=== PATIENT | female | born 1985 | race Caucasian/White ===

== ENCOUNTER → 2019-10-09 11:32 | Outpatient (BNVA) | payer OTHER, SELFPAY | PROVIDERS: Family Provider Family Medicine; PCP Family Medicine; Visit Provider Family Medicine | DX: N89.8 Other specified noninflammatory disorders of vagina (principal) | CPT/HCPCS: 84450; 87070 ==

== ENCOUNTER 2021-01-04 08:35 | Emergency (ER) | payer OTHER, SELFPAY ==
[2021-01-04] VITALS (10 sets, daily range): BP systolic 101–104; BP diastolic 60–70; PULSE 60; RESP 17–18; TEMP 37.1; O2SAT 96–100; BMI 30.2
--- NOTE | 2021-01-04 08:54 | ED_ITS ---
HPI - Back Pain/Injury General: Chief Complaint: Back Pain/Injury Stated Complaint: BACK PAIN: INJURED 1 WK AGO Time Seen by Provider: 01/04/21 08:38 History of Present Illness: HPI Narrative: 35-year-old female presents emergency room was here back pain with pain radiating into her L leg. Symptoms began about a week ago she relates them to sleeping on a mattress after they have flipped it. She did not feel like the actual act of flipping the mattress and cause a problem is just a change in the mattress after flipping it when she slept on it. It became progressively worse. No trauma no falls no recent MVAs. No previous back injuries or previous imaging of the back. Stop previously had any surgeries on her back. She denies any incontinence of bowel or any urinary retention. No fever sweats or chills. She denies dysuria urgency or frequency no history kidney stones. She is not had any hematochezia or melena. MD elicited complaint: back pain Onset (ago): week(s) (1) Timing: constant Severity: severe Quality: sharp Location: lumbar spine Radiation: left leg below the knee Exacerbating factors: movement, sitting upright and walking Relieving factors: other (prone) Associated symptoms: Reports difficulty walking (Due to back pain); Deny abdominal pain, arthralgias, chills, change in bowel habits, dysuria, f atigue, fecal incontinence, fever(s), hematuria, myalgias, nausea, numbness, syncope, tingling/numbness/burning, urinary frequency, urinary urgency, vomiting or weakness Work related injury: No Review of Systems Const: Denies: fever(s), chills or fatigue Card: Denies: syncope Resp: Denies: dyspnea, productive cough or non-productive cough GI: Denies: abdominal pain, nausea, vomiting, fecal incontinence or change in bowel habits : Denies: dysuria, urinary urgency or hematuria Skin/Breast: Denies: rash or pruritus Neuro: Reports: difficulty walking (Due to back pain) PFSH ED PFSH: Surgical History History of cholecystectomy Family History Other CAD (coronary artery disease) Cancer Social History Smoking and tobacco status: never smoked Alcohol intake: never Physical Exam Const: COMMON NORMALS: no acute distress GENERAL APPEARANCE: cooperative and comfortable ORIENTATION/CONSCIOUSNESS: Yes awake, Yes oriented to person, Yes oriented to place and Yes oriented to time HENMT: COMMON NORMALS: normocephalic, atraumatic and hearing grossly normal bilaterally HEAD & SCALP: normocephalic and atraumatic Neck/C-Spine: COMMON NORMALS: no JVD Resp: COMMON NORMALS: normal respiratory effort, No retractions, No use of accessory muscles and clear to auscultation bilaterally AUSCULTATION: clear to auscultation bilaterally Cardio: COMMON NORMALS: no JVD, regular rate, regular rhythm and No murmurs present (Cardio) RATE: regular rate RHYTHM: regular rhythm Extremity: COMMON NORMALS: normal to inspection, capillary refill normal, no clubbing, cyanosis or edema, no calf tenderness and no pedal edema Neuro: SENSORIUM/ORIENTATION: Yes oriented to person, Yes oriented to place and Yes oriented to time DEEP TENDON REFLEXES: Left ankle reflex intensity grade: 2+ OTHER: Sensation lower extremities normal bilaterally neurovascularly intact. Skin: COMMON NORMALS: no rashes or lesions noted GENERAL SKIN EXAM: no rashes or lesions noted Course Vital Signs: Vital signs: Vital Signs Temperature 98.8 F 01/04/21 08:44 Pulse Rate 60 01/04/21 08:44 Respiratory Rate 17 01/04/21 09:05 Blood Pressure 104/60 01/04/21 09:50 Pulse Oximetry 97 01/04/21 09:50 MDM - Back Pain/Injury MDM Narrative: Medical decision making narrative: Reviewed for physical exam findings the patient she is feeling better will discharge home with hydrocodone tizanidine diclofenac and steroid taper. (Prednisone taper is on the discharge summary did did not stay on the discharge form in the chart.) If not improving follow-up with primary care if worsening return to the emergency room. Lab Data: Labs: Lab Results 01/04/21 09:05 WBC 6.8 10^3/uL 10^3/ uL (4.0-10.0) RBC 4.93 10^6/uL 10^6 /uL (4.1-5.3) Hgb 14.6 g/dL g/dL (11.5-15.3) Hct 45.7 % % (37.0-47.0) MCV 92.7 fl fl (81-99) MCH 29.6 pg pg (28.0-34.0) MCHC 31.9 g/dL g/dL (30.0-36.0) RDW 13.3 % % (12.1-15.1) Plt Count 243 10^3/cmm 10^3 /cmm (130-400) MPV 10.0 fL fL (7.4-10.4) Neut % (Auto) 73.3 % % Lymph % (Auto) 19.2 % % [place] % (Auto) 5.0 % % Eos % (Auto) 1.8 % % Baso % (Auto) 0.6 % % Neut # (Auto) 4.95 10^3/uL 10^3 /uL (1.8-7.7) Lymph # (Auto) 1.3 10^3/uL 10^3/ uL (0.8-4.8) [place] # (Auto) 0.3 10^3/uL 10^3/ uL (0.2-0.9) Eos # (Auto) 0.1 10^3/uL 10^3/ uL (0.0-0.8) Baso # (Auto) 0.0 10^3/uL 10^3/ uL (0.0-0.1) Nucleated RBC % (a uto) 0 % % Nucleated RBCs # 0.0 /100WBC /100W BC Discharge Plan Discharge Patient Disposition: Home Clinical Impression: Sciatica Condition: Stable Prescriptions: New hydrocodone-acetaminophen 5-325 mg tablet 1 tab PO Q6H PRN (Reason: pain) Qty: 20 RF: 0 tizanidine 4 mg capsule 4 mg PO Q6H PRN (Reason: muscle spasticity) Qty: 20 RF: 0 diclofenac sodium 75 mg tablet,delayed release (DR/EC) 75 mg PO Q12H PRN (Reason: pain) Qty: 30 RF: 0 No Action amoxicillin-pot clavulanate [Augmentin] 875-125 mg tablet 1 tab PO Q12H Qty: 20 RF: 0 Discharge Orders: Discharge ED (Routine); Ordered 10/26/21 Ordered By: Dilan Curry Referrals: Samina Almanza DO [Primary Care Provider] - Discharge Activity: Limit activity as instructed Patient Instructions: Opioid Safety Activity Restrictions/Additional Instructions: Limit lifting bending and stooping. No lifting greater than 10 pounds (approximately 1 jug of milk). Follow-up with your primary care doctor within the next week. If symptoms worsen or change significantly return to the emergency room. Coding Level of Care Code ED Office Services Representative for Chg Fwd Exam Comprehensive
[2021-01-04] MEDS: morphine 4 mg/mL SDV 1 mL 6 MG IVP (09:05)
[2021-01-04] MEDS: orphenadrine 30 mg/mL Inj 2 mL 60 MG IVP (09:10)
[2021-01-04] MEDS: ketorolac 30 mg/mL INJ IVP (09:11)
[2021-01-04] MEDS: dexamethasone 10 mg/mL INJ IVP (09:12)
[2021-01-04 09:21] LABS: Basophils % 0.6 %; Eosinophils # 0.1 10^3/uL (0.0-0.8); Eosinophils % 1.8 %; Hematocrit 45.7 % (37.0-47.0); Hemoglobin 14.6 g/dL (11.5-15.3); Lymphocytes # 1.3 10^3/uL (0.8-4.8); Lymphocytes % 19.2 %; Mean Corpuscular HGB Conc 31.9 g/dL (30.0-36.0); Mean Corpuscular Hemoglobin 29.6 pg (28.0-34.0); Mean Corpuscular Volume 92.7 fl (81-99); Monocytes # 0.3 10^3/uL (0.2-0.9); Neutrophils # 4.95 10^3/uL (1.8-7.7); Neutrophils % 73.3 %; Nucleated Red Blood Cells % 0 %; Platelet Count 243 10^3/cmm (130-400); Red Blood Count 4.93 10^6/uL (4.1-5.3); Red Cell Distribution Width 13.3 % (12.1-15.1); White Blood Count 6.8 10^3/uL (4.0-10.0)
== END 2021-01-04 10:28 | disposition home or self-care (01) ==
PROVIDERS: Emergency Provider Family Medicine; PCP Family Medicine
DX: M54.32 Sciatica, left side (principal)
CPT/HCPCS: 85025; 96374; 96375; 99283; J1100; J1885; J2270; J2360

== ENCOUNTER → 2021-03-21 09:44 | Outpatient (BNVA) | payer OTHER, SELFPAY | PROVIDERS: PCP Family Medicine; Visit Provider Family Medicine | DX: E03.9 Hypothyroidism, unspecified | CPT/HCPCS: 80053; 84439; 84443; 85025 ==

== ENCOUNTER → 2021-03-22 15:20 | Outpatient (BNVA) | payer OTHER, SELFPAY | PROVIDERS: PCP Family Medicine; Visit Provider Family Medicine | DX: R89.9 Unspecified abnormal finding in specimens from other organs, systems and tissues (principal) | CPT/HCPCS: 82310; 83970 ==

== ENCOUNTER 2021-04-06 11:00 | Outpatient (CLI) | payer OTHER, SELFPAY ==
[2021-04-06 12:31] LABS: 25 Hydroxy Vitamin D 19 ng/mL (30-100)
[2021-04-07 15:03] LABS: Thyroglobulin AB <1 IU/mL (< or = 1)
[2021-04-07 16:26] LABS: Thyroid Peroxidase Antobodies 1 IU/mL (<9)
== END 2021-04-06 11:01 | disposition home or self-care (01) ==
LOC: LAB 11:17
PROVIDERS: PCP Family Medicine; Visit Provider Internal Medicine
DX: E03.9 Hypothyroidism, unspecified (principal); E34.9 Endocrine disorder, unspecified; E55.9 Vitamin D deficiency, unspecified
CPT/HCPCS: 36415; 82306; 86376; 86800

== ENCOUNTER 2021-06-09 09:21 | Outpatient (CLI) | payer OTHER, SELFPAY ==
[2021-06-09 10:51] LABS: Calcium 9.4 mg/dL (8.5-10.5)
[2021-06-09 10:58] LABS: Parathyroid Hormone 36.2 pg/mL (15-65)
[2021-06-09 11:48] LABS: 25 Hydroxy Vitamin D 76 ng/mL (30-100); Thyroid Stimulating Hormone 3.02 uIU/mL (0.27-4.20)
[2021-06-09 12:17] LABS: Free T4 Free Thyroxine 1.32 ng/dL (0.82-1.77)
== END 2021-06-09 09:22 | disposition home or self-care (01) ==
LOC: LAB 09:23
PROVIDERS: PCP Family Medicine; Visit Provider Internal Medicine
DX: E03.9 Hypothyroidism, unspecified (principal); E21.1 Secondary hyperparathyroidism, not elsewhere classified; E55.9 Vitamin D deficiency, unspecified
CPT/HCPCS: 36415; 82306; 82310; 83970; 84439; 84443

== ENCOUNTER → 2022-03-30 13:40 | Outpatient (BNVA) | payer OTHER, SELFPAY | PROVIDERS: PCP Family Medicine; Visit Provider Internal Medicine | DX: E03.9 Hypothyroidism, unspecified (principal); E21.1 Secondary hyperparathyroidism, not elsewhere classified; E55.9 Vitamin D deficiency, unspecified | CPT/HCPCS: 36415; 82306; 82310; 83970; 84439; 84443 ==

== ENCOUNTER → 2022-06-28 11:53 | Outpatient (BNVA) | payer OTHER, SELFPAY | PROVIDERS: PCP Family Medicine; Visit Provider Internal Medicine | DX: E03.9 Hypothyroidism, unspecified (principal); E21.1 Secondary hyperparathyroidism, not elsewhere classified; E55.9 Vitamin D deficiency, unspecified | CPT/HCPCS: 36415; 82306; 82670; 83001; 83002; 84439; 84443; 84480 ==

== ENCOUNTER → 2023-05-15 13:05 | Outpatient (BNVA) | payer OTHER, SELFPAY | PROVIDERS: PCP Family Medicine; Visit Provider Nurse Practitioner Women's Health | DX: R10.2 Pelvic and perineal pain (principal) | CPT/HCPCS: 85025 ==

== ENCOUNTER → 2023-05-17 08:05 | Outpatient (BNVA) | payer OTHER, SELFPAY | PROVIDERS: PCP Family Medicine; Visit Provider Nurse Practitioner Women's Health | DX: N83.201 Unspecified ovarian cyst, right side (principal); R10.30 Lower abdominal pain, unspecified | CPT/HCPCS: 76830 ==

== ENCOUNTER → 2023-06-14 12:43 | Outpatient (BNVA) | payer OTHER, SELFPAY | PROVIDERS: PCP Family Medicine; Visit Provider Internal Medicine | DX: E03.9 Hypothyroidism, unspecified (principal); E21.1 Secondary hyperparathyroidism, not elsewhere classified; E55.9 Vitamin D deficiency, unspecified | CPT/HCPCS: 36415; 82306; 82627; 84403; 84439; 84443 ==

== ENCOUNTER → 2023-08-01 13:25 | Outpatient (BNVA) | payer OTHER, SELFPAY | PROVIDERS: PCP Family Medicine; Visit Provider Nurse Practitioner Women's Health | DX: N83.201 Unspecified ovarian cyst, right side (principal) | CPT/HCPCS: 76830 ==

== ENCOUNTER 2023-08-23 14:39 | Outpatient (CLI) | payer OTHER, SELFPAY ==
--- NOTE | 2023-08-23 14:30 | MR_ITS ---
WS: [id number] MRI PELVIS WITH AND WITHOUT CONTRAST. COMPARISON: Pelvic ultrasound 08/01/2023, 05/17/2023 Multiplanar, multisequence imaging is performed with and without contrast. MultiHance 20 mL. Uterus is midline and normal size. Normal endometrium. No free fluid in the cul-de-sac. There is a T1 hyperintense signal mass in the RIGHT adnexa associated with the ovary. This is most co nsistent with an endometrioma measuring 3.7 x 3.5 cm. There is no significant enhancement on the post contrast imaging. There are additional small follicles in the LEFT ovary which do not enhance. Urinary bladder is negative. No additional T1 hyperintense foci are identified. No additional endomet riomas. There is no ascites or adnexal mass. No destructive bone lesions. MR/MR pelvis wo/w con [id number] IMPRESSION: 1. Previously described complex cystic mass in the RIGHT adnexa has signal enedelia racteristics of an endometrioma measuring 3.7 x 3.5 cm. 2. No additional endometrial implants. 3. Normal LEFT ovary with a few small follicles. 4. Normal uterus.
[2023-08-23] MEDS: gadobenate dimeglumine 20 mL vial IV (15:40)
== END 2023-08-23 14:40 | disposition home or self-care (01) ==
LOC: RAD 14:39
PROVIDERS: PCP Family Medicine; Visit Provider Nurse Practitioner Women's Health
DX: R10.2 Pelvic and perineal pain (principal); N83.201 Unspecified ovarian cyst, right side
CPT/HCPCS: 72197; A9577

== ENCOUNTER → 2023-08-24 09:56 | Outpatient (BNVA) | payer OTHER, SELFPAY | PROVIDERS: PCP Family Medicine; Visit Provider Nurse Practitioner Women's Health | DX: Z12.4 Encounter for screening for malignant neoplasm of cervix (principal) | CPT/HCPCS: 87624 ==

== ENCOUNTER → 2023-09-06 12:00 | Outpatient (BNVA) | payer OTHER, SELFPAY | PROVIDERS: PCP Family Medicine; Visit Provider Family Medicine | DX: R42 Dizziness and giddiness | CPT/HCPCS: 80053; 84443; 85025 ==

== ENCOUNTER → 2023-09-26 13:27 | Outpatient (BNVA) | payer OTHER, SELFPAY | PROVIDERS: PCP Family Medicine; Visit Provider Obstetrics & Gynecology | DX: N83.201 Unspecified ovarian cyst, right side (principal) | CPT/HCPCS: 76830 ==

== ENCOUNTER 2023-12-13 12:25 | Outpatient (CLI) | payer OTHER, SELFPAY | END 2023-12-13 12:26 | disposition home or self-care (01) | LOC: LAB 12:26 | PROVIDERS: PCP Family Medicine; Visit Provider Internal Medicine | DX: E03.9 Hypothyroidism, unspecified (principal); E21.1 Secondary hyperparathyroidism, not elsewhere classified; E55.9 Vitamin D deficiency, unspecified | CPT/HCPCS: 36415; 82306; 84439; 84443 ==

== ENCOUNTER 2024-02-05 06:58 | Day surgery (SDC) | payer OTHER, SELFPAY ==
[2024-01-28 10:34] LABS: Bilirubin Urine Negative (Negative); Blood Urine Negative (Negative); Glucose Urine UA Negative (Normal); Ketones Urine Negative (Negative); Leukocyte Esterase Urine 1+ (Negative); Nitrate Urine Negative (Negative); Protein Urine Negative (Negative); Specific Gravity, Urine 1.017 (1.005-1.030); Urine Appearance Clear (CLEAR); pH Urine 5.5 (5-7)
[2024-01-28 10:37] LABS: Add Urine Microscopic? YES; Bacteria Urine None Seen /hpf; Hyaline Casts Urine 0-4 /lpf; RBC Urine 0-2 /hpf (0-2)
[2024-01-28 10:37] LABS: Basophils % 0.6 %; Eosinophils # 0.2 10^3/uL (0.0-0.8); Eosinophils % 3.2 %; Hematocrit 46.7 % (36-47); Lymphocytes # 1.8 10^3/uL (0.8-4.8); Lymphocytes % 34.4 %; Mean Corpuscular HGB Conc 31.9 g/dL (30-55); Mean Corpuscular Hemoglobin 28.4 pg (27-33); Mean Corpuscular Volume 89.1 fl (85-98); Mean Platelet Volume 9.6 fL (7.4-10.4); Monocytes # 0.3 10^3/uL (0.2-0.9); Monocytes % 5.8 %; Neutrophils # 2.99 10^3/uL (1.8-7.7); Neutrophils % 55.8 %; Nucleated Red Blood Cells % 0 %; Platelet Count 251 10^3/cmm (157-399); Red Blood Count 5.24 10^6/uL (3.85-5.65); Red Cell Distribution Width 12.8 % (12.1-15.1); White Blood Count 5.35 10^3/uL (3.29-11.43)
--- NOTE | 2024-01-28 10:40 | P.ANESASSM_ITS ---
Pre-Anesthetic Assessment Height/Weight: Height 1.55 m Preop Diagnosis: ovarian mass right Operation Date: 02/05/24 10:20 Proposed Procedures p Laparoscopic Hand Assisted Cystectomy 33919, 79374, N83.8(Right) - Jean-Pierre Panchal MD s Laparoscopic Oophorectomy(Right) - Jean-Pierre Panchal MD Familial anesthetic complications: none Social No alcohol and No tobacco Exam alert and oriented x 3 Airway Mallampati: Class II Dentition: full Metabolic Thyroid Disease Anesthetic Plan ASA status: 2 Anesthesia: General Risk of > 500 ml blood loss (7ml/kg in children): No Medications/Allergies Home Medications Medication Instructions Recorded Confirmed Last Taken Type ibuprofen 800 mg tablet 800 mg PO Q8H PRN pain #30 tabs 05/15/23 01/28/24 01/23/24 Rx meclizine 25 mg tablet 25 mg PO BID PRN dizziness 7 days 09/06/23 01/28/24 Unknown Rx #14 tabs levothyroxine 50 mcg tablet 50 mcg PO DAILY #60 tabs 10/08/23 01/28/24 01/28/24 Rx propranolol 10 mg tablet 10 mg PO BID PRN blood pressure 12/25/23 01/28/24 Unknown Rx elevation #60 tabs fluticasone propionate 50 2 spray intranasal DAILY PRN 01/28/24 01/28/24 01/28/24 History mcg/actuation nasal allergies spray,suspension (Flonase Allergy Relief) Allergies Allergy/AdvReac Type Severity Reaction Status Date / Time No Known Allergies Allergy Verified 01/28/24 10:04 [facility] Anesthesia Medical History (Updated 12/25/23 @ 14:54 by Bushra Davis MD) Elevated blood-pressure reading without diagnosis of hypertension started with depo provera--unopposed progesterone; to use propranolol prn--she can feel when it is up Migraine with aura No pertinent past medical history neghx: htn,dm,dvt/pe PCP: [facility] Hypothyroidism (acquired) Surgical History History of cholecystectomy Family History Father Heart disease Mother No problems noted. 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
[2024-01-28 10:43] LABS: Urine Color Orange (Yellow)
[2024-01-28 10:44] LABS: Add Urine Culture? No
[2024-01-28 10:55] LABS: Alanine Aminotransferase 26 U/L (0-33); Albumin Level 4.3 g/dL (3.5-5.2); Alkaline Phosphatase 83 U/L (35-105); Anion Gap 13.3 (5-19); Aspartate Amino Transferase 26 U/L (0-32); Blood Urea Nitrogen 12 mg/dL (6-20); Calcium 8.3 mg/dL (8.5-10.5); Carbon Dioxide 24 mmol/L (22-29); Chloride 106 mmol/L (98-107); Globulin 2.7 g/dL (1.3-4.6); Glomerular Filtration Rate 79.4 mL/min (90-130); Glucose 89 mg/dL (65-115); Osmolality Calculated 287 mOsm/kg (285-295); Potassium 4.3 mmol/L (3.5-5.1); Sodium 139 mmol/L (136-145); Total Bilirubin 0.4 mg/dL (0.15-1.2)
[2024-01-28 20:39] LABS: OR HCG Qualitative Urine Negative (Negative)
[2024-02-05] VITALS (9 sets, daily range): BP systolic 99–123; BP diastolic 62–83; PULSE 52–80; RESP 16–17; TEMP 36.7; O2SAT 92–100; BMI 32.1
--- NOTE | 2024-02-05 07:31 | P.ANESUD_ITS ---
Pre-Anesthetic Update Pre-Anesthetic Assessment: Date of Surgery/Procedure: 02/05/24 Preop Candida gnosis: ovarian mass right Proposed Procedure: Operation Date: 02/05/24 08:35 Proposed Procedures p Laparoscopic Hand Assisted Cystectomy 72050, 65758, N83.8(Right) - Jean-Pierre Panchal MD s Laparoscopic Oophorectomy(Right) - Jean-Pierre Panchal MD Any changes to Pre-Anesthetic Assessment?: No Last Intake: > 8 hrs Exam: Pre-Anes Outpt Exam: alert, oriented x 3, clear to auscultation bilaterally and regular rate & rhythm Cardiac Studies: No Data to Display
[2024-02-05] MEDS: sodium chloride 0.9% 500 ML IV (07:40)
[2024-02-05] MEDS: scopolamine 1.5 Patch 1 PATCH TRANSDERMA (07:40)
[2024-02-05 07:50] LABS: OR HCG Qualitative Urine Negative (Negative)
[2024-02-05] MEDS: sodium chloride 0.9% 1,000 ML 30 ML IV (08:38)
[2024-02-05] MEDS: ceFAZolin 2,000 mg SDV 2000 MG IVP (09:30)
--- NOTE | 2024-02-05 09:43 | W.PM.OPSUD ---
Surgery/Procedure H&P Update DATE OF PROCEDURE: February 05, 2024 DATE H&P PERFORMED: 01/28/24 H&P UPDATE INFORMATION: I have reviewed H&P completed within last 30 days, I have examined patient prior to procedure and No changes to prior documentation PREOP DIAGNOSIS: ovarian mass right PLANNED PROCEDURE: Operation Date: 02/05/24 08:35 Proposed Procedures p Laparoscopic Hand Assisted Cystectomy 35737, 53687, N83.8(Right) - Jean-Pierre Panchal MD s Laparoscopic Oophorectomy(Right) - Jean-Pierre Panchal MD
[2024-02-05] MEDS: BUPivacaine 0.5% INJ 10 mL INJECTION (10:31)
--- NOTE | 2024-02-05 11:35 | W.PM.BPON ---
Date of Procedure: 02/05/24 Surgeon: Jean-Pierre Panchal MD Tube Drawing Supervisor(s): Procedure(s) performed: Laparoscopic right oophorectomy Findings of the procedure(s): Right endometrioma, endometriosis, pelvic adhesions Estimated blood loss: 25 ml Specimen(s) removed: Right ovary Post-operative diagnosis: Status post laparoscopic right oophorectomy
--- NOTE | 2024-02-05 11:37 | P.OP_ITS ---
Operative Report Date of procedure: February 05, 2024 Pre-op diagnosis: Right ovarian mass/cyst Post-op diagnosis: Right endometrioma Procedure done: Laparoscopic right oophorectomy Lysis of adhesions Specimens removed/disposition: Right ovary Surgeon: Jean-Pierre Panchal MD Estimated blood loss (mL): 25 IV fluids (mL): 100 Urine output (mL): 300 Findings: Endometriosis Multiple pelvic adhesions Right endometrioma Procedure: After informed consent, the patient was taken to the operating room where general anesthesia was administered. Pre-Procedure Time-Out verifying the correct patient identity, correct procedure verified with consent, correct site and side, correct patient position, availability of correct implants and any special equipment or requirements was performed and acknowledge by the OR team. She was placed in the dorsal lithotomy position and prepped and draped in sterile fashion. The patient was examined under anesthesia and found to have a normal uterus with normal adnexa. A Dailey catheter was placed in the bladder. A weighted speculum was placed in the vagina, and the anterior lip of cervix was grasped with the single toothed tenaculum. The uterus was sounded to a measure 7 cm. A uterine manipulator was advanced into the endocervical and its bulb filled with NS. Tenaculum was removed after uterine manipulator was secured. The speculum was removed from the vagina. The attention was brought to abdomen after changing gloves. The base of the umbilicus was grasped with an Allis clamp and with 2 towel clamp bilaterally tenting up the umbilicus an intraumbilical incision was made with a scalpel. While tenting up on the abdomen, a Verres needle with sleeve was admitted into the intra-abdominal cavity. A saline drop test was performed and noted to be within normal limits. Pneumoperitoneum was attained with 4 liters of carbon dioxide. The gas was seen to flow freely with normal resistance, so the CO2 gas was advanced to a higher setting. The abdomen was insufflated to an adequate distension. Once an adequate distention was reached, the Verres needle was removed. Then a 5 mm Optiview trocar and cannula were inserted under direct visualization without complications. Trocars were removed and the laparoscope was inserted. At this time, a second incision was made 3 cm above the symphysis pubis, and a 5 mm trocar and sleeve were admitted into the abdomen under direct, laparoscopic visualization without complication. A 5 mm blunt probe was advanced through the second trocar sleeve, and light manipulation of ovaries and uterus to assess the pelvis and posterior aspects was performed. The survey showed multiple pelvic adhesions, enlarged right ovary with endometrioma. A third incision was made in the left lower quadrant and the third trocar was inserted into the abdomen under direct visualization. At this time, the left ovary appeared normal. Attention was turned to the right ovary which was adhered to the right pelvic fossa. The right ovary was grasped with laparoscopic [place] at this point, it was dissected initially using hydrodissection and using blunt dissection. The endometrioma ruptured and chocolate colored thick fluid was expressed. Suction was used to irrigate and drain fluid at this time. Pelvis was copiously irrigated and suctioned. Adhesions around the ovary and omentum were lysed with the LigaSure device. The ovary was removed using the LigaSure device with countertraction. The ovarian bed was then irrigated and dried. There was slight oozing noted and obtained hemostasis using electrocautery. The right ovarian bed/fossa was covered with Surgicel. Then the pelvis was then irrigated, and once hemostasis was assured, the Endo Catch bag was placed through the 10 mm port and the right ovary was placed in the Endo Catch bag and removed through the 10 mm incision without difficulty. At this time, the pelvis was again copiously irrigated and dried. Hemostasis was assured. A Surgicel film was applied to the right ovarian bed for adhesion prevention. Then, all instruments were removed under visualization. The umbilical incision was closed using 3-0 Monocryl in a pursestring fashion and the skin was closed using interrupted stitches of 3 -0 Monocryl suture. Dermabond was placed after closure with 4-0 suture in the lateral ports. All instruments were removed. There was slight oozing noted at the site of the single-toothed tenaculum insertion, obtained hemostasis using ring forceps pressure and Monsel solution. The instruments were removed from the vagina, and excellent hemostasis was noted. The patient tolerated the procedure well, and sponge, lap and needle count were correct times two. The patient taken to the recovery room in good condition.
[2024-02-05] MEDS: HYDROcodone-acetaminophen 5-325 mg Tablet 1 TAB PO (12:59)
--- NOTE | 2024-02-05 13:07 | SUR.PHASEII ---
Dailey catheter removed
== END 2024-02-05 13:30 | disposition home or self-care (01) ==
PROVIDERS: PCP Family Medicine; Visit Provider Obstetrics & Gynecology
PROC: (CPT 49320; principal; 2024-02-05 08:35)
PROC: (CPT 58661; 2024-02-05 08:35)
DX: N80.121 Deep endometriosis of right ovary (principal); N73.6 Female pelvic peritoneal adhesions (postinfective)
CPT/HCPCS: 58661; 36415; 80053; 81001; 81025; 85025; 86850; 86900; 88305; J0690; J1100; J2250; J2405; J2704; J2710; J3010; J3490; J7030; J7040

== ENCOUNTER 2024-02-15 22:31 | Emergency (ER) | payer OTHER, SELFPAY ==
[2024-02-15 22:46] VITALS: BP 121/81; PULSE 92; RESP 15; TEMP 36.7; O2SAT 97; BMI 32.1
--- NOTE | 2024-02-15 23:26 | CTR_ITS ---
PROCEDURE INFORMATION: Exam: CT Abdomen And Pelvis With Contrast Exam date and time: 02/16/2024 12:10 AM Age: 38 years old Clinical indication: Abdominal pain; Localized; Right lower quadrant (rlq); Prior surgery; Surgery date: <1 month; Surgery type: RT oophorectomy two weeks ago. Gb. Patient HX: C/O rlq/groin pain with fever. RT oophorectomy two weeks ago. ; Additional info: Rlq pain, HX oophorectomy 2 weeks ago TECHNIQUE: Imaging protocol: Computed tomography of the abdomen and pelvis with contrast. Radiation optimization: All CT scans at this facility use at least one of these dose optimization techniques: automated exposure control; mA and/or kV adjustment per patient size (includes targeted exams where dose is matched to clinical indication); or iterative reconstruction. Contrast material: OMNI 350; Contrast volume: 100 ml; Contrast route: INTRAVENOUS (IV); COMPARISON: MR pelvis wo/w con [id number] 08/23/2023 3:02 PM RADIATION DOSE METRICS: Total DLP (mGy-cm): 681.49 FINDINGS: Liver: Normal. No mass. Gallbladder and biliary ducts: The gallbladder is absent. Pancreas: Normal. No ductal dilation. Spleen: Normal. No splenomegaly. Adrenal glands: Normal. No mass. Kidneys and ureters: Normal. No hydronephrosis. Stomach and bowel: Unremarkable. No obstruction. No mucosal thickening. Appendix: The appendix is not visualized but there are no secondary signs of acute appendicitis. Intraperitoneal space: Unremarkable. No free air. No significant fluid collection. Vasculature: Unremarkable. No abdominal aortic aneurysm. Lymph nodes: Unremarkable. No enlarged lymph nodes. Urinary bladder: Unremarkable as visualized. Reproductive: Unremarkable as visualized. Bones/joints: Unremarkable. No acute fracture. Soft tissues: Unremarkable. CT/CT abdomen pelvis w con* [id number] IMPRESSION: 1. No bowel obstruction or inflammatory process associated with the bowel. 2. No free air or significant free fluid in the abdomen or pelvis. 3. No abscess. 4. The appendix is not visualized but there are no secondary signs of acute appendicitis.
--- NOTE | 2024-02-15 23:55 | W.ED.ABDPA2 ---
HPI - Abdominal Pain General: Chief Complaint: Abdominal Pain Stated Complaint: post op swelling and pain in groin Time Seen by Provider: 02/15/24 22:57 History of Present Illness: 38-year-old female who had a laparoscopic oophorectomy 2 weeks ago. She had done fine until earlier today when she developed right-sided lower quadrant and right groin pain. It worsened over the course of the evening. She also noticed swelling in her right labia. There is been no vaginal bleeding or discharge. No vomiting. She had a temperature of 100.3 at home. Related Data Home Medications Medication Instructions Recorded Confirmed fluticasone propionate 50 2 spray intranasal DAILY PRN 01/28/24 01/28/24 mcg/actuation nasal allergies spray,suspension (Flonase Allergy Relief) Previous Rx's Medication Instructions Recorded ibuprofen 800 mg tablet 800 mg PO Q8H PRN pain #30 tabs 05/15/23 meclizine 25 mg tablet 25 mg PO BID PRN dizziness 7 days 09/06/23 #14 tabs levothyroxine 50 mcg tablet 50 mcg PO DAILY #60 tabs 10/08/23 propranolol 10 mg tablet 10 mg PO BID PRN blood pressure 12/25/23 elevation #60 tabs acetaminophen 325 mg capsule 325 mg PO Q4H PRN fever or pain 02/05/24 #60 caps ibuprofen 800 mg tablet 800 mg PO TID PRN pain #60 tabs 02/05/24 sumatriptan succinate 25 mg tablet See Rx Instructions PO .COMPLEX #7 02/11/24 tabs amoxicillin 875 mg-potassium 1 tab PO BID #20 tabs 02/16/24 clavulanate 125 mg tablet hydrocodone 5 mg-acetaminophen 325 1 tab PO Q4H PRN pain #10 tabs 02/16/24 mg tablet ondansetron 4 mg disintegrating 4 mg PO Q6H PRN nausea and 02/16/24 tablet vomiting #14 tabs Allergies Allergy/AdvReac Type Severity Reaction Status Date / Time No Known Allergies Allergy Verified 02/15/24 22:51 PFS ED PFSH: Medical History Elevated blood-pressure reading without diagnosis of hypertension started with depo provera--unopposed progesterone; to use propranolol prn--she can feel when it is up Migraine with aura No pertinent past medical history neghx: htn,dm,dvt/pe PCP: Archie Hypothyroidism (acquired) Surgical History History of cholecystectomy Family History Father Heart disease Mother No problems noted. 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 Physical Exam Const: COMMON NORMALS: no acute distress GENERAL APPEARANCE: cooperative; not ill appearing and not frail appearing HENMT: COMMON NORMALS: normocephalic, atraumatic and Normal external nose present HEAD & SCALP: normocephalic and atraumatic FACE & SINUS: normal facial exam and face symmetric NOSE: Normal external nose present Eye: COMMON NORMALS: Equal, round and reactive pupils present and EOMs intact bilaterally PUPIL: Yes Equal, round and reactive pupils present Neck/C-Spine: GENERAL: Yes trachea midline Chest: CHEST: Yes Symmetrical chest wall rise Resp: COMMON NORMALS: normal respiratory effort, No retractions, No use of accessory muscles and clear to auscultation bilaterally AUSCULTATION: clear to auscultation bilaterally Cardio: COMMON NORMALS: regular rate and regular rhythm RATE: regular rate RHYTHM: regular rhythm GI: COMMON NORMALS: Normal to inspection, nondistended, normoactive bowel sounds present and Soft to palpation PALPATION: Yes Soft to palpation, Yes Tenderness to palpation present (GI) Details: RLQ and Yes Guarding due to palpation present (GI) : EXTERNAL FEMALE EXAM: Yes erythema, Yes externally tender, Yes external swelling, No laceration and No External ecchymosis (female) Extremity: COMMON NORMALS: no pedal edema Neuro: ADRIANA COMA SCALE: document GCS findings Adriana coma scale eye opening: Spontaneous [place] coma scale verbal response: Orientated Adriana coma scale motor response: Obey commands [place] coma scale total score: 15 SENSORY EXAM: Yes extremities (intact) Psych: COMMON NORMALS: speech normal SPEECH: Yes normal speech Skin: COMMON NORMALS: no rashes or lesions noted GENERAL SKIN EXAM: no rashes or lesions noted Course Vital Signs: Vital signs: Vital Signs Temperature 98.1 F 02/15/24 22:46 Pulse Rate 92 02/15/24 22:46 Respiratory Rate 15 02/15/24 22:46 Blood Pressure 121/81 02/15/24 22:46 Pulse Oximetry 97 02/15/24 22:46 Oxygen Delivery Me thod Room Air 02/15/24 22:46 MDM - Abdominal Pain Medical Decision Making 38-year-old female with right-sided pelvic pain, right labial swelling. No definite abscess on physical exam. No drainage. White blood cell count is 12. CRP is only 5. No surgical complication or other pathology noted on CT scan. Pain is improved. She be allowed home on antibiotics. Appears to be cellulitis of the labia without abscess. She has an appointment with her surgeon in 6 days. She knows to return for worsening symptoms in the meantime. Lab Data 02/16/24 00:00 02/16/24 00:00 Labs/Radiology: Radiology Impressions Abdomen/Pelvis CT 02/15/24 23:26 IMPRESSION: 1. No bowel obstruction or inflammatory process associated with the bowel. 2. No free air or significant free fluid in the abdomen or pelvis. 3. No abscess. 4. The appendix is not visualized but there are no secondary signs of acute appendicitis. Laboratory Results WBC 12.23 10^3/uL (3.29-11.43) H 02/16/24 00:00 RBC 5.53 10^6/uL (3.85-5.65) 02/16/24 00:00 Hgb 15.60 g/dL (11.27-16.99) 02/16/24 00:00 Hct 48.7 % (36-47) H 02/16/24 00:00 MCV 88.1 fl (85-98) 02/16/24 00:00 MCH 28.2 pg (27-33) 02/16/24 00:00 MCHC 32.0 g/dL (30-55) 02/16/24 00:00 RDW 13.0 % (12.1-15.1) 02/16/24 00:00 Plt Count 306 10^3/cmm (157-399) 02/16/24 00:00 MPV 10.2 fL (7.4-10.4) 02/16/24 00:00 Neut % (Auto) 70.4 % 02/16/24 00:00 Lymph % (Auto) 22.1 % 02/16/24 00:00 [place] % (Auto) 5.4 % 02/16/24 00:00 Eos % (Auto) 1.3 % 02/16/24 00:00 Baso % (Auto) 0.6 % 02/16/24 00:00 Neut # (Auto) 8.62 10^3/uL (1.8-7.7) H 02/16/24 00:00 Lymph # (Auto) 2.7 10^3/uL (0.8-4.8) 02/16/24 00:00 [place] # (Auto) 0.7 10^3/uL (0.2-0.9) 02/16/24 00:00 Eos # (Auto) 0.2 10^3/uL (0.0-0.8) 02/16/24 00:00 Baso # (Auto) 0.1 10^3/uL (0.0-0.1) 02/16/24 00:00 Nucleated RBC % (auto) 0 % 02/16/24 00:00 Nucleated RBCs # 0.0 /100WBC 02/16/24 00:00 Sodium 140 mmol/L (136-145) 02/16/24 00:00 Potassium 3.8 mmol/L (3.5-5.1) 02/16/24 00:00 Chloride 103 mmol/L (98-107) 02/16/24 00:00 Carbon Dioxide 24 mmol/L (22-29) 02/16/24 00:00 Anion Gap 16.8 (5-19) 02/16/24 00:00 BUN 13 mg/dL (6-20) 02/16/24 00:00 Creatinine 0.8 mg/dL (0.5-0.9) 02/16/24 00:00 GFR Calculation 79.4 mL/min (90-130) L 02/16/24 00:00 Glucose 116 mg/dL (65-115) H 02/16/24 00:00 Calculated Osmolality 291 mOsm/kg (285-295) 02/16/24 00:00 Calcium 10.2 mg/dL (8.5-10.5) 02/16/24 00:00 Total Bilirubin 0.4 mg/dL (0.15-1.2) 02/16/24 00:00 AST 18 U/L (0-32) 02/16/24 00:00 ALT 20 U/L (0-33) 02/16/24 00:00 Alkaline Phosphatase 85 U/L (35-105) 02/16/24 00:00 C-Reactive Protein 5.3 mg/L (0.0-4.9) H 02/16/24 00:00 Total Protein 7.9 g/dL (6.6-8.7) 02/16/24 00:00 Albumin 4.7 g/dL (3.5-5.2) 02/16/24 00:00 Globulin 3.2 g/dL (1.3-4.6) 02/16/24 00:00 Lipase 37 U/L (13-60) 02/16/24 00:00 Urine Color Yellow (Yellow) 02/16/24 00:00 Urine Appearance Turbid (CLEAR) A 02/16/24 00:00 Urine pH 5.0 (5-7) 02/16/24 00:00 Ur Specific [place] 1.021 (1.005-1.030) 02/16/24 00:00 Urine Protein Negative (Negative) 02/16/24 00:00 Urine Glucose (UA) Negative (Normal) 02/16/24 00:00 Urine Ketones Negative (Negative) 02/16/24 00:00 Urine Blood Negative (Negative) 02/16/24 00:00 Urine Nitrate Negative (Negative) 02/16/24 00:00 Urine Bilirubin Negative (Negative) 02/16/24 00:00 Urine Urobilinogen 1.0 mg/dL (Negative) 02/16/24 00:00 Ur Leukocyte Esterase 2+ (Negative) A 02/16/24 00:00 Urine RBC 0-4 /hpf (0-2) H 02/16/24 00:00 Urine WBC 25-40 /hpf (0-5) H 02/16/24 00:00 Ur Squamous Epith Cells 40-55 /hpf (0-5) H 02/16/24 00:00 Amorphous Sediment Not Reportable 02/16/24 00:00 Urine Bacteria 1+ /hpf (NONE) H 02/16/24 00:00 All radiology interpretation(s) finalized by discharge Discharge Plan Discharge Patient Disposition: Home Clinical Impression: Cellulitis of labia Condition: Stable Prescriptions: New amoxicillin-pot clavulanate 875-125 mg tablet 1 tab PO BID Qty: 20 0RF ondansetron 4 mg tablet,disintegrating 4 mg PO Q6H PRN (Reason: nausea and vomiting) Qty: 14 0RF Continued hydrocodone-acetaminophen 5-325 mg tablet 1 tab PO Q4H PRN (Reason: pain) Qty: 10 0RF No Action ibuprofen 800 mg tablet 800 mg PO Q8H PRN (Reason: pain) Qty: 30 0RF meclizine 25 mg tablet 25 mg PO BID PRN (Reason: dizziness) 7 Days Qty: 14 0RF propranolol 10 mg tablet 10 mg PO BID PRN (Reason: blood pressure elevation) Qty: 60 0RF levothyroxine 50 mcg tablet 50 mcg PO DAILY Qty: 60 2RF sumatriptan succinate 25 mg tablet See Rx Instructions PO .COMPLEX Qty: 7 0RF Rx Instructions: take 1 tab at onset of headache; if no relief may repeat 1 tab after at least 2 hrs; max = 4 tabs/24 hr PO fluticasone propionate [Flonase Allergy Relief] 50 mcg/actuation spray,suspension 2 spray intranasal DAILY PRN (Reason: allergies) Rx Instructions: administer into each nostril acetaminophen 325 mg capsule 325 mg PO Q4H MDD Postoperative pain PRN (Reason: fever or pain) Qty: 60 0RF ibuprofen 800 mg tablet 800 mg PO TID PRN (Reason: pain) Qty: 60 0RF Discharge Orders: Discharge ED (Routine); Ordered 02/16/24 Ordered By: James Ventura Referrals: Jean-Pierre Panchal MD [Physician] - 4-7 days Bushra Davis MD [Primary Care Provider] - Patient Instructions: Cellulitis (ED), Opioid Safety, Pain Management Activity Restrictions/Additional Instructions: Return for worsening pain, redness, swelling, or streaking despite 3-4 doses of antibiotics, fever despite antibiotics, vomiting liquids or medications, any other concerning symptoms. See your doctor as scheduled on Sunday for follow-up. Medication as directed. Coding Level of Care Code ED Senior Electrical Designer for Pamela Ramirez
[2024-02-16] MEDS: ondansetron 2 mg/ML SDV 2 mL 4 MG IVP
[2024-02-16] MEDS: morphine 4 mg/mL SDV 1 mL IVP (00:05)
[2024-02-16] MEDS: iohexol 350 mg/mL 500 mL Btl (per mL) IV (00:13)
[2024-02-16 00:31] LABS: Basophils # 0.1 10^3/uL (0.0-0.1); Basophils % 0.6 %; Bilirubin Urine Negative (Negative); Blood Urine Negative (Negative); Eosinophils # 0.2 10^3/uL (0.0-0.8); Eosinophils % 1.3 %; Glucose Urine UA Negative (Normal); Hematocrit 48.7 % (36-47); Ketones Urine Negative (Negative); Leukocyte Esterase Urine 2+ (Negative); Lymphocytes # 2.7 10^3/uL (0.8-4.8); Lymphocytes % 22.1 %; Mean Corpuscular Hemoglobin 28.2 pg (27-33); Mean Corpuscular Volume 88.1 fl (85-98); Mean Platelet Volume 10.2 fL (7.4-10.4); Monocytes # 0.7 10^3/uL (0.2-0.9); Monocytes % 5.4 %; Neutrophils # 8.62 10^3/uL (1.8-7.7); Neutrophils % 70.4 %; Nitrate Urine Negative (Negative); Nucleated Red Blood Cells % 0 %; Platelet Count 306 10^3/cmm (157-399); Protein Urine Negative (Negative); Red Blood Count 5.53 10^6/uL (3.85-5.65); Specific Gravity, Urine 1.021 (1.005-1.030); Urine Appearance Turbid (CLEAR); Urine Color Yellow (Yellow); White Blood Count 12.23 10^3/uL (3.29-11.43)
[2024-02-16 00:36] LABS: UA Manual Slide Review YES
[2024-02-16 00:46] LABS: Add Urine Microscopic? YES; Alanine Aminotransferase 20 U/L (0-33); Albumin Level 4.7 g/dL (3.5-5.2); Alkaline Phosphatase 85 U/L (35-105); Anion Gap 16.8 (5-19); Aspartate Amino Transferase 18 U/L (0-32); Blood Urea Nitrogen 13 mg/dL (6-20); C Reactive Protein 5.3 mg/L (0.0-4.9); Calcium 10.2 mg/dL (8.5-10.5); Carbon Dioxide 24 mmol/L (22-29); Chloride 103 mmol/L (98-107); Creatinine Clr Calc Pharmacy 87.8398; Globulin 3.2 g/dL (1.3-4.6); Glomerular Filtration Rate 79.4 mL/min (90-130); Glucose 116 mg/dL (65-115); Lipase 37 U/L (13-60); Osmolality Calculated 291 mOsm/kg (285-295); Potassium 3.8 mmol/L (3.5-5.1); Sodium 140 mmol/L (136-145); Total Bilirubin 0.4 mg/dL (0.15-1.2); Total Protein 7.9 g/dL (6.6-8.7)
[2024-02-16 00:47] LABS: Add Urine Culture? No; Bacteria Urine 1+ /hpf; RBC Urine 0-4 /hpf (0-2); Squamous Epithelial Cell Urine 40-55 /hpf (0-5); WBC Urine 25-40 /hpf (0-5)
[2024-02-16] MEDS: lidocaine 2% viscous 15 ML, aluminum-mag hydrox-simethicon 30 ML, sucralfate oral liq 1 GM PO (01:07)
[2024-02-16] MEDS: ketorolac 30 mg/mL INJ IVP (01:07)
[2024-02-16] MEDS: amoxicillin-clav 875-125 mg Tablet 1 TAB PO (01:52)
[2024-02-16] MEDS: fluconazole 100 mg Tablet 150 MG PO (01:52)
[2024-02-16 01:53] VITALS: BP 103/72; PULSE 72; O2SAT 100
== END 2024-02-16 01:53 | disposition home or self-care (01) ==
PROVIDERS: Emergency Provider Emergency Medicine; PCP Family Medicine
DX: N76.2 Acute vulvitis (principal)
CPT/HCPCS: 74177; 80053; 81001; 83690; 85025; 86140; 96374; 96375; 99285; J1885; J2270; J2405

== ENCOUNTER 2024-06-26 08:52 | Outpatient (CLI) | payer OTHER, SELFPAY ==
[2024-06-26 10:13] LABS: Thyroid Stimulating Hormone 4.95 uIU/mL (0.27-4.20)
== END 2024-06-26 08:53 | disposition home or self-care (01) ==
PROVIDERS: PCP Family Medicine; Visit Provider Internal Medicine
DX: L68.0 Hirsutism (principal); E03.9 Hypothyroidism, unspecified; E21.1 Secondary hyperparathyroidism, not elsewhere classified; E55.9 Vitamin D deficiency, unspecified
CPT/HCPCS: 36415; 84439; 84443

== ENCOUNTER 2024-09-04 09:31 | Outpatient (CLI) | payer OTHER, SELFPAY ==
--- NOTE | 2024-09-04 09:40 | MM_ITS ---
WS: [id number] BILATERAL SCREENING DIGITAL TOMOSYNTHESIS MAMMOGRAM WITH CAD HISTORY: Z12.31 - Encounter for screening mammogram for malignant ... COMPARISON: None available. Bilateral CC and MLO views with tomosynthesis and synthetic mammography submitted. Computer aided detection analyzed. Breast composition: There are scattered areas of fibroglandular density. No suspicious masses, microcalcifications or architectural distortion. MM/MM scr BI tomosynthesis [id number] IMPRESSION: BI-RADS: 1 - Negative. FOLLOW UP: 1 Year Follow-up
== END 2024-09-04 09:32 | disposition home or self-care (01) ==
LOC: RAD 09:32
PROVIDERS: PCP Family Medicine; Visit Provider Nurse Practitioner Women's Health
DX: Z12.31 Encounter for screening mammogram for malignant neoplasm of breast (principal); R92.323 Mammographic fibroglandular density, bilateral breasts
CPT/HCPCS: 77063; 77067